=== PATIENT | female | born 1990 | race Caucasian/White ===

== ENCOUNTER 2022-05-22 19:02 | Emergency (ER) | payer OTHER, SELFPAY ==
--- NOTE | ~2022-05-22 | XR_ITS ---
EXAM: XR knee RT min 4V DATE: 05/22/2022 20:19 HISTORY: Rt knee pain s/p falling in a pothole . COMPARISON: None available. FINDINGS: Normal mineralization. No fracture or dislocation. No lytic or blastic lesion. Joint space s are maintained. No erosion or periosteal change. Soft tissues within normal limits. Small volume viki int effusion. IMPRESSION: No acute osseous finding in the right knee. Reviewed, dictated and finalized at location [facility].
[2022-05-22 19:28] VITALS: BP 134/99; PULSE 93; RESP 16; TEMP 36.6; O2SAT 100
[2022-05-22 21:42] VITALS: BP 128/86; PULSE 93; RESP 16; TEMP 36.6; O2SAT 99
--- NOTE | 2022-05-22 21:59 | ED.GENADULT ---
HPI - General Adult General Chief complaint: Extremity Injury, Lower <Sanjiv Espinal PA-C - Last Filed: 05/23/22 02:32> Stated complaint: right knee pain <Sanjiv Espinal PA-C - Last Filed: 05/23/22 02:32> Time Seen by Provider: 05/22/22 21:22 <Sanjiv Espinal PA-C - Last Filed: 05/23/22 02:32> History of Present Illness HPI narrative: This is a 32-year-old female presents to the ED with chief complaint of right knee injury occurring today just prior to arrival. She was walking on concrete and got stuck in a pothole when she fell. Denies any head injury or LOC. Denies any further site of pain or injury. Denies any popping sensation. <Sanjiv Espinal PA-C - Last Filed: 05/23/22 02:32> Related Data Allergies/adverse reactions: Allergies Allergy/AdvReac Type Severity Reaction Status Date / Time No Known Allergies Allergy Verified 05/22/22 19:03 <Sanjiv Espinal PA-C - Last Filed: 05/23/22 02:32> Review of Systems Review of Systems: CONSTITUTIONAL: Denies fever, chills, or sweats. SKIN: Denies rash or itching. MUSCULOSKELETAL: Endorses right knee pain. Endorses right knee abrasion. Denies back pain, other joint pain, or myalgia. NEUROLOGIC: Denies headache, numbness, dizziness, or weakness. PSYCHIATRIC: Denies anxiety or depression. <Sanjiv Espinal PA-C - Last Filed: 05/23/22 02:32> Exam Narrative: GENERAL: Well-appearing, well-nourished, and in no acute distress. HEAD: Normocephalic, atraumatic. EXTREMITIES: Right knee: Mild effusion present. Medial joint line tenderness. Normal range of motion. No edema. Left knee: Benign MSK exam is otherwise benign. She is ambulatory. SKIN: Warm, dry, no rash. NEURO: Alert and oriented x3. No focal deficits. PSYCH: Normal mood and affect. 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 I performed all aspects of the MDM as documented w/ the following additions: 32-year-old presenting after a knee injury. X-rays were negative for fracture. Patient then left before she received her discharge paperwork. <Andrea Romero MD - Last Filed: 05/24/22 21:16> Vital Signs Vital signs: Vital Signs Temperature 97.9 F 05/22/22 19:28 Pulse Rate 93 05/22/22 19:28 Respiratory Rate 16 05/22/22 19:28 Blood Pressure 134/99 H 05/22/22 19:28 Pulse Oximetry 100 05/22/22 19:28 Oxygen Delivery Room Air 05/22/22 19:28 Temperature 97.9 F 05/22/22 21:42 Pulse Rate 93 05/22/22 21:42 Respiratory Rate 16 05/22/22 21:42 Blood Pressure 128/86 05/22/22 21:42 Pulse Oximetry 99 05/22/22 21:42 Oxygen Delivery Room Air 05/22/22 21:42 <Sanjiv Espinal PA-C - Last Filed: 05/23/22 02:32> Vital Signs Temperature 97.9 F 05/22/22 19:28 Pulse Rate 93 05/22/22 19:28 Respiratory Rate 16 05/22/22 19:28 Blood Pressure 134/99 H 05/22/22 19:28 Pulse Oximetry 100 05/22/22 19:28 Oxygen Delivery Room Air 05/22/22 19:28 Temperature 97.9 F 05/22/22 21:42 Pulse Rate 93 05/22/22 21:42 Respiratory Rate 16 05/22/22 21:42 Blood Pressure 128/86 05/22/22 21:42 Pulse Oximetry 99 05/22/22 21:42 Oxygen Delivery Room Air 05/22/22 21:42 <Andrea Romero MD - Last Filed: 05/24/22 21:16> Medical Decision Making MDM Narrative Medical decision making narrative: This is a 32-year-old female presents to the ED with chief complaint of right knee pain after an injury. Pt eloped from the department before I was able to complete her discharge. Triage note makes mention of right arm pain but she declines further evaluation by myself at this point. She was updated that her knee x-rays are negative for acute findings. We discussed using a knee immobilizer but she left. RN states that patient told her that she can take ibuprofen and Tylenol at home. <Sanjiv Espinal PA-C - Last Filed: 05/23/22 02
--- NOTE | 2022-05-22 22:00 | PC.NURSE ---
Patient comes to desk in w/c with friend, states I'm leaving, he wasn't going to give me anything for pain and I can just call my primary in the morning. You can tell him that I am leaving, I don't need papers. Patient was wheeled out of the ED with her friend by her side, patient had belongings with her. ERP notified. Patient left without discharge papers.
== END 2022-05-22 22:03 | disposition left against medical advice (07) ==
PROVIDERS: Emergency Provider Physician Assistant
DX: S89.91XA Unspecified injury of right lower leg, initial encounter (principal); W01.0XXA Fall on same level from slipping, tripping and stumbling without subsequent striking against object, initial encounter
CPT/HCPCS: 73564; 99283

== ENCOUNTER 2022-09-10 08:45 | Emergency (ER) | payer OTHER, SELFPAY ==
[2022-09-10 08:50] VITALS: BP 150/117; PULSE 101; RESP 20; TEMP 36.7; O2SAT 99
--- NOTE | 2022-09-10 09:25 | ED.SKABFB ---
HPI - Skin/Abscess/Foreign Bdy General Chief complaint: Skin/Abscess/Foreign Body Stated complaint: rash Time Seen by Provider: 09/10/22 09:07 History of Present Illness HPI narrative: 32-year-old female complains of rash to trunk and extremities x3 days. Pt states the rash is painful at times, denies pruritus, drainage. She was treated for syphilis 2 weeks ago after positive testing [facility] the [facility] with a penicillin shot. States the rash resolved until repair 3 days ago. She reports her had not been treated for syphilis and they had had sexual intercourse in the meantime, and the rash reappeared in the same distribution. She denies neck pain, headache, vision changes, focal numbness or weakness, chest pain or shortness of breath, nausea or vomiting, abdominal pain, genital sores or lesions, vaginal discharge or concern for other STDs, fever. States she tested negative for all other STDs at the health department approximately 2 weeks ago. She is also reporting a bug infestation at her trailer home. States there is a sewage backup and she has had fungus gnats crawling on her body and all over her house. She denies nits or lice in her hair. She denies drug use. Related Data Allergies Allergy/AdvReac Type Severity Reaction Status Date / Time No Known Allergies Allergy Verified 09/10/22 10:52 Review of Systems Review of Systems: CONSTITUTIONAL: Denies fever, chills EYES: Denies visual changes, redness, or discharge. ENT: Denies rhinorrhea, congestion, sore throat, or otalgia. CARDIOVASCULAR: Denies chest pain, palpitations, or edema. RESPIRATORY: Denies cough or dyspnea. GASTROINTESTINAL: Denies abdominal pain, nausea, vomiting, or diarrhea. GENITOURINARY: Denies dysuria or hematuria. SKIN: See HPI MUSCULOSKELETAL: Denies back pain, joint pain, or myalgia. NEUROLOGIC: Denies headache, numbness, dizziness, or weakness. PSYCHIATRIC: Denies anxiety or depression. Exam Narrative: GENERAL: Well-appearing, in no acute distress. HEAD: Normocephalic EYES: PERRLA, EOMI ENT: Nares clear. Mucous membranes moist. Oropharynx without tonsillar hypertrophy exudate or other lesions. NECK: No nuchal rigidity. CHEST: No respiratory distress. Clear to auscultation, no adventitious breath sounds. HEART: Regular rate and rhythm. No murmur heard. Normal peripheral pulses. ABDOMEN: Soft, nontender, normal active bowel sounds. EXTREMITIES: Normal range of motion. No edema. SKIN: Scattered macules and papules on back, extremities, and dorsum or R foot w/o signs of secondary infection. No lesions to palms or soles, no lesions in web spaces. No evidence of lice or nits. NEURO: No focal deficits. Alert and oriented x3. Annual nerves II through XII intact. Strength 5/5 in BUE and BLE. Sensation intact throughout. Ambulatory without difficulty. PSYCH: Normal mood and affect. Course Vital Signs Vital signs: Vital Signs Temperature 98.1 F 09/10/22 08:50 Pulse Rate 101 H 09/10/22 08:50 Respiratory Rate 20 09/10/22 08:50 Blood Pressure 150/117 H 09/10/22 08:50 Pulse Oximetry 99 09/10/22 08:50 Oxygen Delivery Room Air 09/10/22 08:50 Temperature 98.1 F 09/10/22 08:50 Pulse Rate 63 09/10/22 11:20 Respiratory Rate 16 09/10/22 11:20 Blood Pressure 142/97 H 09/10/22 11:20 Pulse Oximetry 100 09/10/22 11:20 Oxygen Delivery Room Air 09/10/22 08:50 MDM - Skin/Abscess/Foreign Bdy MDM Narrative Medical decision making narrative: 32-year-old female complains of rash to trunk and extremities x3 days, similar to her previous syphilis rash. She was treated for syphilis with IM PCN 2 months ago at the [facility] with resolution of rash, rash returned 3 days ago. Her sexual partner has not been treated and they have since had sexual intercourse. She is also reporting bugs crawling on her body. Exam significant for the above. RPR obtained and pending. She is neurovascularly intact with low
[2022-09-10 11:20] VITALS: BP 142/97; PULSE 63; RESP 16; O2SAT 100
[2022-09-10] MEDS: PENICILLIN G BENZATHINE 2,400,000 UNITS/4 ML SYRINGE 2400000 UNITS IM (11:33)
[2022-09-10] MEDS: Please add drug allergy info to patient profile. XX (11:33)
[2022-09-12 05:38] LABS: Rapid Plasma Reagin Reactive (NonReactive)
[2022-09-14 18:15] LABS: Treponema pallidum Ab FTA ABS Reactive (Nonreactive)
== END 2022-09-10 11:45 | disposition home or self-care (01) ==
PROVIDERS: Emergency Provider Physician Assistant
DX: R21 Rash and other nonspecific skin eruption (principal); B86 Scabies
CPT/HCPCS: 36415; 81025; 86592; 86780; 96372; 99283; J0561